=== PATIENT | male | born 1975 | race Caucasian/White ===

== ENCOUNTER 2023-06-23 21:20 | Emergency (ER) | payer BC, SELFPAY ==
[2023-06-23 21:21] VITALS: BP 144/108; PULSE 85; RESP 16; TEMP 36.7; O2SAT 96; BMI 48.1
--- NOTE | 2023-06-23 21:41 | XR_ITS ---
PROCEDURE INFORMATION: Exam: XR Chest Exam date and time: 06/23/2023 9:45 PM Age: 47 years old Clinical indication: Shortness of breath; Additional info: SOB TECHNIQUE: Imaging protocol: Radiologic exam of the chest. Views: 1 view. COMPARISON: No relevant prior studies available. FINDINGS: Lungs: Unremarkable. No consolidation. Pleural spaces: Unremarkable. No pleural effusion. No pneumothorax. Heart/Mediastinum: Unremarkable. No cardiomegaly. Bones/joints: Unremarkable. IMPRESSION: No acute findings.
--- NOTE | 2023-06-23 21:42 | [facility].EDCP ---
Discharge Plan Disposition Chief Complaint: Shortness of Breath/Dyspnea Prescriptions Prescriptions: No Action hydrochlorothiazide 25 mg tablet 25 mg PO ONCE Referrals Follow up/Referrals: Chauncey Lowry PA [Primary Care Provider] - See instructions Activity Restrictions/Add. Instructions Additional Instructions/Restrictions: At this time it was felt you are safe to be discharged home. If new or worsening symptoms please do not hesitate to return the emergency department. If symptoms persist please follow-up with your family doctor as you are able. Clinical Impressions Clinical Impression: Dyspnea Discharge ED Provider: Braden Carrington General Chief Complaint: Shortness of Breath/Dyspnea Stated Complaint: SOA, Time Seen by Provider: 06/23/23 21:31 Mode of Arrival: Ambulatory Source of Information: Patient Limitations: No Limitations Description of Symptoms (Recalled from ER Triage Doc. by RN): pt c/o SOA since 10am this morning. pt states he tested postive for Covid on Jun 07 History of Present Illness HPI narrative: Patient is a 47-year-old male with past medical history of hypertension, sleep apnea on nocturnal CPAP who presents emergency department for evaluation of shortness of breath. Patient tested positive for COVID approximately 2 weeks ago. Over the course of the last couple days he has had worsening shortness of breath. It is not modifiable, not worse with exertion or lying down. There is no cough or chest pain. Due to persistent dyspnea he presents here for continued evaluation. Related Data Home Medications Medication Instructions Recorded Confirmed hydrochlorothiazide 25 mg tablet 25 mg PO ONCE 06/23/23 06/23/23 Allergies Allergy/AdvReac Type Severity Reaction Status Date / Time No Known Allergies Allergy Verified 06/23/23 21:53 [facility] Disclaimer: The information contained in this section may have been updated after the patient was seen, as this information can be updated by other users. Social History Smoking Status: Never smoker alcohol intake: never current occupational status: other Travel in the last 8 weeks: None ROS Obtained: Yes Systems reviewed as appropriate & no additional complaints except as documented Physical Exam General General appearance: alert and in no apparent distress Head Head exam: atraumatic and normocephalic Eye Eye exam: Present PERRL and EOMI ENT ENT exam: Present mucous membranes moist Neck Neck exam: Present normal inspection Chest Chest inspection: Present normal inspection and symmetric chest wall rise Respiratory Respiratory exam: Present normal lung sounds bilaterally; Absent respiratory distress Cardiovascular Cardiovascular exam: Present regular rate and normal rhythm Abdominal Exam Abdominal exam: Present soft Extremities Exam Extremities exam: Present other (Pitting edema bilateral lower extremities.) Neurological Exam Neurological exam: Present alert Psychiatric Psychiatric exam: Present normal affect Skin Skin exam: Present warm and dry HEART Score HEART Score HEART Score assessment performed?: Yes History (anamnesis): Slightly suspicious ECG: Normal Age: 45-65 years Risk factors: 1-2 risk factors Troponin: </= normal limit HEART Score: 2 Critical Care Critical Care Time Critical Care Time: No Medical Decision Making Nam Inquiry Pt receiving controlled substance: No Vital Signs Vital Signs: 06/23/23 21:21 Temperature 98.1 F Temperature Source Oral Pulse Rate [Right] 85 Respiratory Rate 16 Blood Pressure [Right Arm] 144/108 H Blood Pressure Mean [Right Arm] 120 02 Sat by Pulse Oximetry 96 Lab Data Labs: Lab Results 06/23/23 21:27: WBC 9.2, RBC 4.86, Hgb 14.0 L, Hct 40.5 L, MCV 83.3, MCH 28.7, MCHC 34.5, RDW 14.4, Plt Count 246, MPV 8.1, Neut % (Auto) 54.2, Lymph % (Auto) 29.9, [place] % (Auto) 9.6 H, Eos % (Auto) 5.8, Baso % (Auto) 0.5, Neut # (Auto) 5.0, Lymph # (
--- NOTE | 2023-06-23 21:50 | ECG_ITS ---
APPROVED REPORT Exam: Resting ECG HR:87 bpm ECG Measurements Heart Rate 87 AXES ID 124 P 40 QRSd 98 QRS 46 QT 345 T -6 QTc 390 Conclusion SINUS RHYTHM NONSPECIFIC ST & T-WAVE ABNORMALITY BORDERLINE ECG UNCONFIRMED REPORT Electronically signed by : Jean Pierre Ball MD 06/26/2023 09:05:22
[2023-06-23 22:07] LABS: Influenza A, PCR Not Detected (NotDetected); Influenza B, PCR Not Detected (NotDetected)
[2023-06-23 22:09] LABS: VBG Base Excess 1.4 mmol/L (-2.4-2.3); VBG HCO3 25.9 mmol/L (23-30); VBG Oxygen Saturation 98.3 % (50-70); VBG PCO2 40.5 mmol/L (35-51); VBG PH 7.42 mmol/L (7.31-7.41); VBG Total CO2 27.1 mmol/L (23-27)
[2023-06-23 22:29] LABS: Basophils # 0.1 K/mm3 (0-0.2); Basophils % 0.5 % (0.1-2.0); Eosinophils # 0.5 K/mm3 (0.0-0.4); Eosinophils % 5.8 % (0.1-12.0); Hematocrit 40.5 % (42.0-52.0); Lymphocytes # 2.8 K/mm3 (0.7-4.5); Lymphocytes % 29.9 % (10-50); Mean Corpuscular HGB Conc 34.5 g/dL (31.8-35.4); Mean Corpuscular Hemoglobin 28.7 pg (27.0-31.2); Mean Corpuscular Volume 83.3 fl (80-94); Mean Platelet Volume 8.1 fl (7.4-10.4); Monocytes # 0.9 K/mm3 (0.1-1.0); Monocytes % 9.6 % (1.7-9.3); Neutrophils % 54.2 % (37.0-80.0); Platelet Count 246 K/mm3 (142-424); Red Blood Count 4.86 M/mm3 (4.60-6.20); Red Cell Distribution Width 14.4 % (11.5-17.5); White Blood Count 9.2 K/mm3 (4.8-10.8)
[2023-06-23 22:32] LABS: Coronavirus 19, PCR Detected (NotDetected)
[2023-06-23 22:34] LABS: Alanine Aminotransferase 43 U/L (12-78); Alkaline Phosphatase 43 U/L (38-126); Aspartate Amino Transferase 36 U/L (17-59); Bilirubin,Total 0.7 mg/dl (0.2-1.3); Blood Urea Nitrogen 18 mg/dl (9-20); Carbon Dioxide 27 mmol/L (22.0-30.0); Chloride 104 mmol/L (98-107); Creatinine Clearance Estimated 113 mL/min (50-200); Estimated Glomerular Filt Rate 90 ml/min (>60); GFR (African American) 109 ML/MIN (>60)
[2023-06-23 22:35] LABS: Albumin Level 4.4 g/dl (3.5-5.0); Albumin/Globulin Ratio 1.4 (1.1-1.8); Anion Gap 9.9 mEq/L (5-15); Globulin 3.1 g/dL (1.3-3.2); Glucose 152 mg/dl (74-100); Potassium 3.9 mmoL/L (3.5-5.1); Sodium 137 mmol/L (136-145); Total Protein,Serum 7.5 g/dl (6.3-8.2)
[2023-06-23 22:46] LABS: NT Pro Brain Natriuretic Pep. < 20.0 pg/mL (0-125)
[2023-06-23 22:49] LABS: Troponin I < 0.01 ng/ml (0.00-0.034)
[2023-06-23 23:03] VITALS: BP 149/100; PULSE 90; RESP 20; TEMP 36.7; O2SAT 94
== END 2023-06-23 23:05 | disposition home or self-care (01) ==
PROVIDERS: Emergency Provider Emergency Medicine; PCP Physician Assistant
DX: R06.02 Shortness of breath (principal); G47.30 Sleep apnea, unspecified; I10 Essential (primary) hypertension
CPT/HCPCS: 71045; 80053; 82803; 83880; 84484; 85025; 87636; 93005; 99285